=== PATIENT | male | born 1945 | race Caucasian/White ===

== ENCOUNTER → 2022-02-01 | Outpatient (CLI) | payer MEDICARE | LOC: MRI 07:39 | PROVIDERS: ATTEND Neurological Surgery | DX: M48.061 Spinal stenosis, lumbar region without neurogenic claudication (principal); M43.12 Spondylolisthesis, cervical region | CPT/HCPCS: 72052; 72125; 72148 ==

== ENCOUNTER 2022-02-14 14:56 | Outpatient (RCR) | payer MEDICARE, OTHER | END 2022-02-15 | LOC: PT 14:56 | PROVIDERS: ATTEND Neurological Surgery | DX: M48.061 Spinal stenosis, lumbar region without neurogenic claudication (principal); M43.12 Spondylolisthesis, cervical region ==

== ENCOUNTER 2022-03-09 06:32 | Observation (INO) | payer MEDICARE, OTHER ==
[2022-03-07 13:56] LABS: BASOPHILS % 0.4 % (0.0-1.0); EOSINOPHILS # (AUTO) 0.1 (0.0-0.4); EOSINOPHILS % 1.6 % (0.0-6.0); HEMATOCRIT 40.1 % (38.2-49.6); HEMOGLOBIN 13.4 g/dL (14.0-18.0); LYMPHOCYTES # (AUTO) 1.5 (1.0-3.2); LYMPHOCYTES % 19.9 % (18.0-39.1); MEAN CORPUSCULAR HEMOGLOBIN 33.5 pg (28-32); MEAN CORPUSCULAR HGB CONC 33.4 g/dL (31-35); MEAN CORPUSCULAR VOLUME 100.3 fL (81-99); MONOCYTES # (AUTO) 0.5 (0.2-0.8); MONOCYTES % 6.4 % (4.4-11.3); NEUTROPHILS # (AUTO) 5.5 (2.1-6.9); NEUTROPHILS % 71.6 % (38.7-80.0); PLATELET COUNT 241 x10e3/uL (140-360); RED CELL DISTRIBUTION WIDTH 12.6 % (11.7-14.4)
[2022-03-07 14:08] LABS: INR 0.99; PARTIAL THROMBOPLASTIN TIME 24.5 seconds (23.8-35.5)
[2022-03-07 14:14] LABS: ANION GAP 14.7 mmol/L (8-16); CALCIUM 9.3 mg/dL (8.4-10.2); CREATININE, SERUM 1.02 mg/dL (0.72-1.25); POTASSIUM 3.7 mmol/L (3.5-5.1)
[~2022-03-09] VITALS: Ht 172.7 cm; Wt 83.9 kg
[~2022-03-09 06:32] MED LIST: AMLODIPINE BESYL5 MG PO; DONEPEZIL HCL10 MG; FAMOTIDINE20 MG PO; LEVOTHYROXINE50 MCG PO; LEXAPRO10 MG PO
[2022-03-09] MEDS ORDERED: HYDROCODON-ACE1 EA12 PO (09:26)
[2022-03-09] MEDS ORDERED: ACETAMINOPHEN 325 MG TAB PO PRN (09:30)
[2022-03-09] MEDS ORDERED: ZOLPIDEM TARTRATE 5 MG TAB PO PRN (09:30)
[2022-03-09] MEDS ORDERED: HYDROMORPHONE 2MG/ML 2 MG/ML ML IV PRN (09:30)
[2022-03-09] MEDS ORDERED: MAGNESIUM/ALUMINUM/SIMETHICONE 30 ML UDC PO PRN (09:30)
[2022-03-09] MEDS ORDERED: PROMETHAZINE HCL (IM) 25 MG/ML VIAL IM PRN (09:30)
[2022-03-09] MEDS: LACTATED RINGER'S 1,000 ML IV SCH ×2 (09:30→17:50)
[2022-03-09] MEDS ORDERED: MORPHINE SULFATE 5 MG/ML VIAL IM PRN (09:30)
[2022-03-09] MEDS ORDERED: ONDANSETRON HCL INJ 2MG/ML 2ML 2 MG/ML VIAL IV PRN (09:30)
[2022-03-09] MEDS ORDERED: CARISOPRODOL 350 MG TAB PO PRN (09:30)
[2022-03-09] MEDS: OXYCODONE/ACETAMINOPHEN 5-325 1 EACH TABLET PO PRN ×2 (12:35→19:10)
[2022-03-09] MEDS ORDERED: ONDANSETRON HCL INJ 2MG/ML 2ML 2 MG/ML VIAL ONE (12:37)
[2022-03-09] MEDS ORDERED: EPHEDRINE SULFATE INJ 50 MG/ML VIAL ONE (12:37)
[2022-03-09] MEDS ORDERED: LIDOCAINE HCL 2% LOCAL INJ 5 ML SDV VIAL INJ ONE (12:37)
[2022-03-09] MEDS ORDERED: SUGAMMADEX SODIUM 200 MG/2 ML VIAL IV ONE (12:37)
[2022-03-09] MEDS ORDERED: DEXAMETHASONE SOD PHOS INJ 4 MG/ML SDV ONE (12:37)
[2022-03-09] MEDS ORDERED: PROPOFOL IV EMULSION 10 MG/ML 20 ML VIAL ONE (12:37)
[2022-03-09] MEDS ORDERED: ROCURONIUM BROMIDE 10 MG/ML 5ML VIAL IV ONE (12:37)
[2022-03-09] MEDS ORDERED: ACETAMINOPHEN 1000 MG/100 ML IV ONE (12:37)
[2022-03-09] MEDS ORDERED: POVIDONE IODINE 0.05% 0.05 % ML PO ONE (12:37)
[2022-03-09] MEDS ORDERED: SEVOFLURANE INHAL SOLN 250 ML PEN BTL ONE (12:37)
[2022-03-09] MEDS ORDERED: FENTANYL CITRATE/PF 100MCG/2 ML INJ ONE (12:47)
[2022-03-09 13:04] VITALS: BP 152/90
[2022-03-09 17:00] VITALS: BP 152/76
[2022-03-09] MEDS: FAMOTIDINE 20 MG TAB PO SCH (18:38)
[2022-03-09 20:00] VITALS: BP 140/89
[2022-03-09 21:20] VITALS: BP 140/89
[2022-03-10] VITALS: BP 130/79
[2022-03-10] MEDS: LACTATED RINGER'S 1,000 ML IV SCH (01:03)
[2022-03-10 04:00] VITALS: BP 137/76
[2022-03-10] MEDS ORDERED: LEVOTHYROXINE SODIUM 25 MCG TABLET PO SCH (06:00)
[2022-03-10] MEDS: OXYCODONE/ACETAMINOPHEN 5-325 1 EACH TABLET PO PRN (07:29)
[2022-03-10 07:40] VITALS: BP 144/83
[2022-03-10] MEDS: FAMOTIDINE 20 MG TAB PO SCH (08:48)
[2022-03-10] MEDS ORDERED: AMLODIPINE BESYLATE 5 MG TAB PO SCH (09:00)
[2022-03-10] MEDS ORDERED: ESCITALOPRAM OXALATE 10 MG TAB PO SCH (09:00)
== END 2022-03-10 08:58 | disposition home or self-care (01) ==
LOC: OR 06:32 → PACU V 10:05 → MED/SURG 11:30
PROVIDERS: ADMIT Neurological Surgery; ATTEND Neurological Surgery
DX: M50.121 Cervical disc disorder at C4-C5 level with radiculopathy (principal); I10 Essential (primary) hypertension; Z88.1 Allergy status to other antibiotic agents; Z88.8 Allergy status to other drugs, medicaments and biological substances; Z20.822 Contact with and (suspected) exposure to COVID-19; Z01.818 Encounter for other preprocedural examination
CPT/HCPCS: 0223U; 20931; 22551; 22845; 36415; 71046; 72040; 76000; 80048; 85025; 85610; 85730; 86850; 86900; 88304; 88311; 93005; C1713 ×3; G0378 ×2; J0131; J0690 ×2; J1100; J2001; J2405; J2704; J3010

== ENCOUNTER → 2022-04-06 | Outpatient (CLI) | payer MEDICARE, OTHER ==
[~2022-04-06] MED LIST changes: +HYDROCODON-ACE1 EA12 PO
== END ==
LOC: RAD 11:41
PROVIDERS: ATTEND Neurological Surgery
DX: M50.20 Other cervical disc displacement, unspecified cervical region (principal); M43.22 Fusion of spine, cervical region
CPT/HCPCS: 72050

== ENCOUNTER → 2022-04-19 | Outpatient (CLI) | payer MEDICARE, OTHER ==
[~2022-04-19] MED LIST changes: +IOPAMIDOL 370 MG/ML 100 ML INFUS..BTL INJ ONE
[2022-04-19 11:19] LABS: CREATININE, SERUM 0.94 mg/dL (0.72-1.25)
== END ==
LOC: CT 10:03
PROVIDERS: ATTEND Neurological Surgery
DX: R51.9 Headache, unspecified (principal)
CPT/HCPCS: 36415; 70470; 82565; 84520; Q9967

== ENCOUNTER → 2022-08-25 | Outpatient (CLI) | payer MEDICARE, OTHER ==
[~2022-08-25] MED LIST changes: -IOPAMIDOL 370 MG/ML 100 ML INFUS..BTL INJ ONE
== END ==
LOC: DX 14:33
PROVIDERS: ATTEND Urology
DX: N35.919 Unspecified urethral stricture, male, unspecified site (principal)
CPT/HCPCS: 51610